=== PATIENT | male | born 1965 | race African-American/Black ===

== ENCOUNTER 2019-01-08 21:34 | Emergency (ER) | payer OTHER ==
--- NOTE | 2019-01-08 21:50 | EDM.PDOC ---
ED HPI GENERAL MEDICAL PROBLEM - General Chief Complaint: Chest Pain Stated Complaint: PT HAS FEVER Time Seen by Provider: 01/08/19 21:42 - History of Present Illness INITIAL COMMENTS - FREE TEXT/NARRATIVE: HISTORY AND PHYSICAL: History of present illness: The patient is a 53-year-old male with a history of hypertension who follows in [facility] with a provider and presents with a one-week history of vague anterior chest pain, a 2 week history of a dry cough occasionally productive of phlegm and 3 days of fever on and off. The patient says he did not get his flu shot this year and he has no abdominal complaints vomiting or diarrhea. Patient says he has been using [id number] NyQuil and does not feel like it is improving. He is eating and drinking normally without abdominal pain and is passing his urine normally. He has not seen his provider yet for these complaints. As the chest pain is constant and is worse with coughing and it is anterior bilaterally Review of systems: As per history of present illness and below otherwise all systems reviewed and negative. Past medical history: As per history of present illness and as reviewed below otherwise noncontributory. Surgical history: As per history of present illness and as reviewed below otherwise noncontributory. Social history: No reported history of drug or alcohol abuse. Family history: As per history of present illness and as reviewed below otherwise noncontributory. Physical exam: General: Well-developed well-nourished man who is nontoxic and vital signs are noted by me HEENT: Atraumatic, normocephalic, pupils reactive, negative for conjunctival pallor or scleral icterus, mucous membranes moist, throat clear, neck supple, nontender, trachea midline. Cervical adenopathy or nuchal rigidity Lungs: Clear to auscultation, breath sounds equal bilaterally, chest nontender. Wheezing stridor or worker breathing Heart: S1S2, regular, negative for clicks, rubs, or JVD. Abdomen: Soft, nondistended, nontender. Negative for masses or hepatosplenomegaly. NABS Pelvis: Stable nontender. Genitourinary: Deferred. Rectal: Deferred. Extremities: Atraumatic, negative for cords or calf pain. Neurovascular unremarkable. No pedal edema or leg asymmetry Neuro: Awake, alert, oriented. Cranial nerves II through XII unremarkable. Cerebellum unremarkable. Motor and sensory unremarkable throughout. Exam nonfocal. Diagnostics: EKG CBC CMP influenza troponin chest x-ray Therapeutics: Impression: Viral URI with cough Definitive disposition and diagnosis as appropriate pending reevaluation and review of above. Chest Pain Score (Numeric/FACES): 6 - Related Data Allergies Allergy/AdvReac Type Severity Reaction Status Date / Time No Known Allergies Allergy Verified 01/08/19 21:47 Home Meds: Home Meds amLODIPine [Norvasc] 10 mg PO DAILY 03/21/15 [History] Hydrochlorothiazide [Microzide] 12.5 mg PO DAILY 01/08/19 [History] ED ROS GENERAL - Review of Systems Review Of Systems: ROS reveals no pertinent complaints other than HPI. ED EXAM, GENERAL - Physical Exam Exam: See Below (See dictation) Course - Vital Signs Last Recorded V/S: Last Vital Signs Temp 37.7 C 01/08/19 21:41 Pulse 80 01/08/19 21:41 Resp 20 01/08/19 21:41 BP 140/93 H 01/08/19 21:41 Pulse Ox 98 01/08/19 21:41 - Orders/Labs/Meds Orders: Active Orders 24 hr Category Date Time Status EKG Documentation Completion [RC] STAT Care 01/08/19 21:48 Active Chest 2V [CR] Stat Exams 01/08/19 21:48 Taken Labs: Laboratory Tests 01/08/19 01/08/19 Range/Units 22:02 22:02 WBC 5.17 (4.0-11.0) K/uL RBC 5.29 (4.50-5.90) M/uL Hgb 14.4 (13.0-17.0) g/dL Hct 43.6 (38.0-50.0) % MCV 82.4 (80.0-98.0) fL MCH 27.2 (27.0-32.0) pg MCHC 33.0 (31.0-37.0) g/dL RDW Std Deviation 42.4 (28.0-62.0) fl RDW Coeff of Silvia 14 (11.0-15.0) % Plt Count 152 (150-400) K/uL MPV 10.50 (7.40-12.00) fL Neut % (Auto) 36.2 L (48.0-80.0) % Lymph % (Auto) 55.1 H (16.0-40.0) % [place] % (Auto) 5.8 (0.0-15.0) % Eos % (Auto) 2.1 (0.0-7.0) % Baso % (Auto) 0.8 (0.0-1.5) % Neut # (Auto) 1.9 (1.4-5.7) K/uL Lymph # (Auto) 2.9 H (0.6-2.4) K/uL [place] # (Auto) 0.3 (0.0-0.8) K/uL Eos # (Auto) 0.1 (0.0-0.7) K/uL Baso # (Auto) 0.0 (0.0-0.1) K/uL Nucleated RBC % 0.0 /100WBC Nucleated RBCs # 0 K/uL Sodium 139 (136-148) mmol/L Potassium 3.8 (3.5-5.1) mmol/L Chloride 105 (98-107) mmol/L Carbon Dioxide 23.5 (21.0-32.0) mmol/L BUN 19 H (7.0-18.0) mg/dL Creatinine 1.4 H (0.8-1.3) mg/dL Est Cr Clr Drug Dosing 64.99 mL/min Estimated GFR (MDRD) > 60.0 ml/min Glucose 92 (74-106) mg/dL Calcium 9.3 (8.5-10.1) mg/dL Total Bilirubin 0.3 (0.2-1.0) mg/dL AST 26 (15-37) IU/L ALT 59 (14-63) IU/L Alkaline Phosphatase 91 (46-116) U/L Troponin I < 0.050 (0.000-0.056) ng/mL Total Protein 7.4 (6.4-8.2) g/dL Albumin 3.7 (3.4-5.0) g/dL Globulin 3.7 (2.6-4.0) g/dL Albumin/Globulin Ratio 1.0 (0.9-1.6) Departure - Departure Time of Disposition: 22:52 Disposition: Home, Self-Care 01 Condition: Good Clinical Impression: Viral URI with cough - Discharge Information Forms: ED Department Discharge Additional Instructions: The following information is given to patients seen in the emergency department who are being discharged to home. This information is to outline your options for follow-up care. We provide all patients seen in our emergency department with a follow-up referral. The need for follow-up, as well as the timing and circumstances, are variable depending upon the specifics of your emergency department visit. If you don't have a primary care physician on staff, we will provide you with a referral. We always advise you to contact your personal physician following an emergency department visit to inform them of the circumstance of the visit and for follow-up with them and/or the need for any referrals to a consulting specialist. The emergency department will also refer you to a specialist when appropriate. This referral assures that you have the opportunity for followup care with a specialist. All of these measure are taken in an effort to provide you with optimal care, which includes your followup. Under all circumstances we always encourage you to contact your private physician who remains a resource for coordinating your care. When calling for followup care, please make the office aware that this follow-up is from your recent emergency room visit. If for any reason you are refused follow-up, please contact the [facility] emergency department at and ask to speak to the emergency department charge nurse. [facility] Primary care- Internal Medicine and Family [address] [address] These follow-up with your provider in 2001 of hours in the next few days for reevaluation and further care. Use [id number] Tylenol or ibuprofen for fevers in the appropriate doses and any other medications that you choose for symptoms. Push hydration and rest. Return to ER as needed and as discussed - My Orders Last 24 Hours: My Active Orders 01/08/19 21:48 EKG Documentation Completion [RC] STAT Chest 2V [CR] Stat - Assessment/Plan Last 24 Hours: My Active Orders 01/08/19 21:48 EKG Documentation Completion [RC] STAT Chest 2V [CR] Stat
[2019-01-08 22:37] LABS: CHLORIDE,CL 105 mmol/L (98-107); SODIUM,NA 139 mmol/L (136-148)
--- NOTE | 2019-01-08 22:52 | CR ---
INDICATION: Cough and fever. TECHNIQUE: Chest 2 views COMPARISON: Chest x-ray 10/20/2014 FINDINGS: Cardiovascular and mediastinum: Heart size and vasculature are normal in caliber and appearance. Lungs and pleural spaces: Lungs are clear. No sign of infiltrate or mass. No sign of pleural effusion. No pneumothorax. Bones and soft tissues: No significant findings. IMPRESSION: No acute findings and no significant changes from the prior exam. Dictated by David Kilpatrick MD @ Jan 08 2019 10:49PM Signed by Dr. David Kilpatrick @ Jan 08 2019 10:50PM
[2019-01-08 23:15] VITALS: BP 130/90
== END 2019-01-08 23:10 | disposition home or self-care (01) ==
LOC: MW.ED 21:34
DX: J06.9 Acute upper respiratory infection, unspecified (principal); Z79.899 Other long term (current) drug therapy
CPT/HCPCS: 36415; 71046; 71046-26; 80053; 84484; 85025; 87804; 93005; 99282; 99285-25